=== PATIENT | female | born 1985 | race Caucasian/White ===

== ENCOUNTER → 2020-03-21 | Outpatient (CLI) | payer BC ==
[~2020-03-21] MED LIST: INUL2TAB4 PO; LACT1CAP6 PO; LEVO50TA5 PO; MULT-245 PO; SPIR100T4 PO
[2020-03-25 11:12] VITALS: BP 132/82
== END ==
LOC: LAB 08:30
PROVIDERS: ATTEND Nurse Anesthetist, Certified Registered
DX: Z01.812 Encounter for preprocedural laboratory examination (principal); Z20.828 Contact with and (suspected) exposure to other viral communicable diseases; K59.00 Constipation, unspecified; Z86.010 Personal history of colon polyps
CPT/HCPCS: C9803; U0003

== ENCOUNTER → 2020-03-25 | Day surgery (SDC) | payer BC ==
[~2020-03-25] MED LIST changes: +IPRATRPIUM/ALBUTEROL 0.5/2.5MG 3 ML NEBU. NEB PRN; +IV RINGERS SOLUTION,LACTATED 1,000 ML IV SCH; +MIDAZOLAM HCL PF 2 MG/2 ML VIAL. IV ONE; +ONDANSETRON PF 4 MG/2 ML VIAL. IV PRN; +PROPOFOL 10,000 MCG/ML (20ML) VIAL IV ONE
[2020-03-25 11:12] VITALS: BP 132/82
--- NOTE | 2020-03-26 18:13 | PATHOLOGY ---
[facility] Accession Number: [id number] . 01 Material submitted: . colon - SIGMOID COLON POLYP. Modifiers: sigmoid . 02 Diagnosis: Colon biopsy, sigmoid colon polyp: - Hyperplastic polyp. - Melanosis coli, mild. ([facility] 03/26/2020) QTP 03/26/2020 0926 Local . 02 Comment: There are no adenomatous changes or evidence of malignancy. ([facility] 03/26/2020) . 02 Electronically signed: . Bennett Meadows MD, Pathologist NPI- [id number] . 01 Gross description: . The specimen is received in formalin, labeled "Bk, Jayne, sigmoid colon polyp" and consists of a fragment of pink-felipe tissue measuring 0.5 x 0.3 cm which is entirely submitted in A1. ([facility]; 03/25/2020) SYU/SYU 03/25/2020 1826 Local . 02 Pathologist provided ICD-10: K63.5, K63.89 . 02 CPT . 156632 Specimen Comment: A courtesy copy of this report has been sent to [phone] Specimen Comment: Report sent to / DR JEROME Performed at: 01 [facility] [address], [place], [place] [id number] MD Ray Wilkes MD Phone: [phone] Performed at: 02 [facility] [place] [address] [place], [place] [id number] MD Bennett Meadows MD Phone: [phone]
== END | disposition home or self-care (01) ==
LOC: SURG 09:06
PROVIDERS: ATTEND Internal Medicine Gastroenterology
DX: K59.04 Chronic idiopathic constipation (principal); K57.30 Diverticulosis of large intestine without perforation or abscess without bleeding; K63.89 Other specified diseases of intestine; K63.5 Polyp of colon; Z83.71 Family history of colonic polyps; Z79.899 Other long term (current) drug therapy; Z79.4 Long term (current) use of insulin; Z72.89 Other problems related to lifestyle
CPT/HCPCS: 45380; 88305; J2704; J7120